=== PATIENT | female | born 1975 | race Two or more races ===

== ENCOUNTER → 2025-05-19 | Day surgery (SDC) | payer OTHER ==
[2025-05-13 10:03] VITALS: BP 112/75
[2025-05-13 10:14] LABS: BASO % 1.3 % (0.1-1.2); EOS # 1.09 (0.04-0.54); EOS % 14.6 % (0.7-7.0); LYMPH # 2.28 (1.18-3.74); LYMPH % 30.5 % (19.3-53.1); MEAN PLATELET VOLUME 11.10 fl (9.4-12.4); MONO # 0.45 (0.24-0.82); MONO % 6.0 % (4.7-12.5); NEUT # 3.53 (1.56-6.13); NEUT % 47.3 % (34.0-71.1); RED CELL DISTRIBUTION WIDTH 11.9 % (11.6-14.4)
[2025-05-13 10:18] LABS: URINE APPEARANCE Clear; URINE BILIRRUBIN Negative (NEGATIVE); URINE BLOOD Negative; URINE COLOR Yellow; URINE GLUCOSE Negative (NEGATIVE); URINE KETONE Negative (NEGATIVE); URINE LEUKOCYTE Negative; URINE NITRATE Negative; URINE PROTEIN Negative (NEGATIVE); URINE UROBILINOGEN 0.2 E.U./dl
[2025-05-13 10:22] LABS: URINE BACTERIA 26.4 uL (0.0-1933); URINE EPITHELIAL CELLS 1.9 uL (0.0-38.8); URINE WBC 2.7 uL (0.0-23.2)
[2025-05-13 10:27] LABS: URINE CAST 0.00 uL (0.0-1.40); URINE RBC 1.6 uL (0.0-20.8)
[2025-05-13 10:40] LABS: INR 1.04
[2025-05-13 11:19] LABS: ALT/SGPT 37.0 U/L (12-78); AST/SGOT 21.0 U/L (15-37); BILIRUBIN TOTAL 0.6 mg/dL (0.3-1.2); BUN CREA RATIO 27.0 (7.0-25.0); CREATININE SERUM 0.66 mg/dL (0.55-1.02); GFR 94.8; GLOBULINA 3.4 G/DL (2.4-3.5); GLUCOSE FASTING 90.0 mg/dL (65-100); OSMOLALITY SERUM 283.0 MOSM/KG (275-295)
[~2025-05-19] VITALS: Ht 160 cm; Wt 57.2 kg
[~2025-05-19] MED LIST: BUPIVACAINE HCL/MPF 0.5% 30ML VIAL ONE; CEFAZOLIN SODIUM 1,000 MG VIAL ONE; LIDOCAINE HCL 1%/EPINEPHRINE 20ML VIAL IJ ONE
== END | disposition home or self-care (01) ==
LOC: ADM 05-13 08:15 → CIR.AMB 08:15
PROVIDERS: ATTEND Surgery
DX: K80.10 Calculus of gallbladder with chronic cholecystitis without obstruction (principal); Z88.8 Allergy status to other drugs, medicaments and biological substances

== ENCOUNTER 2025-06-17 13:41 | Emergency (ER) | payer OTHER ==
[~2025-06-17] VITALS: Ht 160 cm; Wt 56.7 kg
[2025-06-17] MEDS ORDERED: FAMOTIDINE/PF 20 MG/2 ML VIAL IV ONE (15:15)
[2025-06-17] MEDS ORDERED: 0.9 % SODIUM CHLORIDE 1,000 ML IV ONE (15:15)
[2025-06-17 15:55] LABS: BASO % 0.6 % (0.1-1.2); EOS # 0.84 (0.04-0.54); EOS % 10.4 % (0.7-7.0); LYMPH # 2.13 (1.18-3.74); LYMPH % 26.3 % (19.3-53.1); MEAN PLATELET VOLUME 9.70 fl (9.4-12.4); MONO # 0.58 (0.24-0.82); MONO % 7.2 % (4.7-12.5); NEUT # 4.49 (1.56-6.13); NEUT % 55.3 % (34.0-71.1); RED CELL DISTRIBUTION WIDTH 12.7 % (11.6-14.4)
[2025-06-17 16:21] LABS: INR 1.04
[2025-06-17 16:28] LABS: ALT/SGPT 34.0 U/L (12-78); AST/SGOT 16.0 U/L (15-37); BILIRUBIN TOTAL 0.86 mg/dL (0.3-1.2); BILIRUBIN,CONJUGATED 0.21 mg/dL (0.0-0.2); BUN CREA RATIO 21.0 (7.0-25.0); CREATININE SERUM 0.66 mg/dL (0.55-1.02); GFR 94.8; GLOBULINA 2.8 G/DL (2.4-3.5); GLUCOSE FASTING 94.0 mg/dL (65-100); OSMOLALITY SERUM 285.0 MOSM/KG (275-295)
[2025-06-17 16:54] LABS: URINE APPEARANCE Clear; URINE BILIRRUBIN Negative (NEGATIVE); URINE BLOOD Negative; URINE COLOR Yellow; URINE GLUCOSE Negative (NEGATIVE); URINE KETONE Negative (NEGATIVE); URINE LEUKOCYTE Negative; URINE NITRATE Negative; URINE PROTEIN Negative (NEGATIVE); URINE UROBILINOGEN 0.2 E.U./dl
[2025-06-17 16:58] LABS: URINE BACTERIA 34.7 uL (0.0-1933); URINE EPITHELIAL CELLS 8.4 uL (0.0-38.8); URINE RBC 5.5 uL (0.0-20.8); URINE WBC 3.3 uL (0.0-23.2)
[2025-06-17 17:01] LABS: URINE CAST 0.00 uL (0.0-1.40)
[2025-06-17] MEDS ORDERED: MEDROLPACK PO (20:13)
[2025-06-17] MEDS ORDERED: NORFLEX100MG PO (20:13)
[2025-06-17] MEDS ORDERED: DEXAMETHASONE SODIUM PHOSPHATE 4 MG/ML VIAL IV ONE (20:30)
[2025-06-17] MEDS ORDERED: ORPHENADRINE CITRATE 30 MG/ML AMPUL IM ONE (20:30)
== END 2025-06-17 21:13 ==
LOC: ER 13:42
PROVIDERS: General Practice
DX: R10.11 Right upper quadrant pain (principal); M79.18 Myalgia, other site; Z88.8 Allergy status to other drugs, medicaments and biological substances; G35.D Multiple sclerosis, unspecified